=== PATIENT | female | born 1960 | race Caucasian/White ===

== ENCOUNTER 2023-12-14 08:14 | Emergency (ER) | payer OTHER ==
[2023-12-14 08:33] VITALS: BP 103/58; PULSE 103; RESP 18; TEMP 97.7; BMI 29.0
[2023-12-14] MEDS ORDERED: KETOROLAC TROMETHAMINE 60 MG/2 ML VIAL ONE (10:25)
[2023-12-14] MEDS ORDERED: ACETAMINOPHEN 325 MG TABLET (FP) ONE (10:25)
[2023-12-14] MEDS ORDERED: LIDOCAINE 5% TOPICAL PATCH ONE (10:25)
[2023-12-14] MEDS: LIDOCAINE 5% TOPICAL PATCH TP ONE (10:36)
[2023-12-14] MEDS: KETOROLAC TROMETHAMINE 60 MG/2 ML VIAL IM ONE (10:37)
[2023-12-14] MEDS: ACETAMINOPHEN 500 MG TABLET (FP) PO ONE (10:37)
[2023-12-14] MEDS: METHOCARBAMOL 500 MG TABLET PO ONE (11:29)
[2023-12-14] MEDS ORDERED: LIDOCAINE PATCH REMOVAL MC SCH (22:00)
== END 2023-12-14 13:47 | disposition home or self-care (01) ==
LOC: JERFT 08:14 → JER 08:14 → JERFT 13:47
PROC: 3E0133Z Introduction of Anti-inflammatory into Subcutaneous Tissue, Percutaneous Approach (ICD-10-PCS; principal; 2023-12-14)
DX: S32.019A Unspecified fracture of first lumbar vertebra, initial encounter for closed fracture (principal); S32.029A Unspecified fracture of second lumbar vertebra, initial encounter for closed fracture; S90.31XA Contusion of right foot, initial encounter; W54.1XXA Struck by dog, initial encounter
CPT/HCPCS: 72131-TC; 72192-TC; 73130-TC-RT-FY; 73630-TC-RT-FY; 82962; 99285-25